=== PATIENT | male | born 1985 | race Hispanic/Latino ===

== ENCOUNTER 2021-07-23 12:41 | Emergency (ER) | payer SELFPAY ==
[~2021-07-23] VITALS: Ht 167.6 cm; Wt 80.0 kg
[2021-07-23] MEDS ORDERED: ZPAK PO (14:59)
[2021-07-23] MEDS ORDERED: ZOFRAN4 MG/TAB PO (14:59)
[2021-07-23 15:02] VITALS: BP 132/80
== END 2021-07-23 15:17 | disposition home or self-care (01) | DRG 179 ==
LOC: ED 12:41
DX: U07.1 COVID-19 (principal)